=== PATIENT | female | born 1975 | race Caucasian/White ===

== ENCOUNTER 2023-04-24 09:00 | Outpatient (CLI) | payer OTHER, SELFPAY ==
--- NOTE | ~2023-04-24 | CT_ITS ---
Noncontrast CT scan of the right ankle CLINICAL HISTORY: Dog bite TECHNIQUE: Axial noncontrast imaging of the right ankle was performed. Sagittal and coronal reformatt ed images were constructed. Dose reduction technique was used on this scan by utilizing automated exp osure control and iterative reconstruction technique. The dose-length product (DLP) was 119.47 mGy-cm . Findings: No fracture or dislocation seen. Ankle mortise and remaining joint spaces are intact. No rian int effusion. There is probable mild subcutaneous soft tissue edema at the anterolateral aspect of the ankle/hindfo ot. No fluid collection or soft tissue mass evident. IMPRESSION: No osseous or articular abnormality. Suspected mild subcutaneous soft tissue edema anterolaterally. Correlate with physical exam. Reviewed, dictated and finalized at location . [employer] IMPRESSION: No osseous or articular abnormality. Suspected mild subcutaneous soft tissue edema anterolaterally. Correlate with p hysical exam.
== END 2023-04-24 09:01 ==
LOC: MICIMG 09:03
PROVIDERS: PCP Nurse Practitioner Family; Visit Provider Nurse Practitioner Family
DX: S90.571A Other superficial bite of ankle, right ankle, initial encounter (principal); X58.XXXA Exposure to other specified factors, initial encounter
CPT/HCPCS: 73700

== ENCOUNTER 2023-09-07 13:38 | Emergency (ER) | payer OTHER, SELFPAY ==
[2023-09-07 13:46] VITALS: BP 129/99; PULSE 98; RESP 16; TEMP 36.6; O2SAT 100
--- NOTE | 2023-09-07 14:58 | ED.EAR ---
HPI - Ear Problem General Chief complaint: Ear Stated complaint: Left Ear Pain Time Seen by Provider: 09/07/23 14:58 Source: patient, RN notes reviewed and old records reviewed Mode of arrival: ambulatory Limitations: no limitations History of Present Illness HPI Narrative: 48-year-old female presents to the [facility] with complaints of left ear pain for 3 days. Patient reports using ibuprofen and Sudafed. Also reports some congestion. Related Data Home Medications Medication Instructions Recorded Confirmed amoxicillin 875 mg tablet mg 09/07/23 eluxadoline 75 mg tablet (Viberzi) mg 09/07/23 rosuvastatin 5 mg tablet mg 09/07/23 Allergies Allergy/AdvReac Type Severity Reaction Status Date / Time No Known Allergies Allergy Verified 09/07/23 13:50 Review of Systems Review of Systems: All systems reviewed & are unremarkable except as noted in HPI and below Constitutional: Constitutional: Reports no additional constitutional complaints Eyes: Eyes: Reports no additional eye complaints ENT: Reports as per HPI, Reports otalgia and Reports nasal congestion Cardiovascular: Cardiovascular: Reports no additional cardiovascular complaints, Denies chest pain and Denies dyspnea Respiratory: Respiratory: Reports no additional respiratory complaints, Denies chest congestion, Denies cough and Denies dyspnea Gastrointestinal: Gastrointestinal: Reports no additional gastrointestinal complaints, Denies abdominal pain, Denies nausea and Denies vomiting Musculoskeletal: Musculoskeletal: Reports no additional musculoskeletal complaints Integumentary/Breasts: Skin/Breast: Reports system reviewed and no additional complaints, except as docu Neurologic: Reports system reviewed and no additional complaints, except as documented Psychiatric: Psychiatric: Reports no additional psychiatric complaints Allergic/Immunologic: Allergic/Immunologic: Reports no additional allergic/immunologic complaints [facility] Past Medical History Medical History High cholesterol Comments At the time of my signature, I reviewed and agree with the nursing past medical, surgical, social, and family history. There is no relevant family history pertinent to the patient complaint. Exam Const: General: cooperative, healthy appearing, comfortable, no acute distress, well developed, alert and well nourished Nutritional Appearance: well nourished Orientation/consciousness: patient oriented x3 Limitations: no limitations HENMT: Head: normal to inspection Ears: hearing grossly normal bilaterally, external ears normal and TM abnormal bulging bilateral, wth effusion serous on the right and erythematous on the left Face/Nose/Sinus: Normal external nose present, Normal nares present, Normal nasal mucous membranes and turbinates present, normal facial exam and face symmetric Face and sinus: normal facial exam and face symmetric Mouth: Yes Normal oral and palatal mucosa present, Yes lip normal and Yes moist mucous membranes Throat: posterior oropharynx normal, uvula midline, postnasal drainage and no uvular edema Eyes: General: appearance normal, both eyes and all related structures Alignment and Position: alignment normal Periorbital: periorbital findings normal Pupils: Equal, round and reactive pupils present EOM: EOMs intact bilaterally Neck: Neck: normal visual inspection, full ROM, no lymphadenopathy and no meningeal signs Chest: Chest palpation & inspection: normal inspection of the chest Resp: Effort & Inspection: normal respiratory effort and able to speak in complete sentences Auscultation: clear to auscultation bilaterally, no crackles, no rales, no rhonchi and no wheezes Cardio: Rate: regular rate Rhythm: regular rhythm Skin: General skin exam: normal color and no rashes or lesions noted Lesions: no lesions Rashes: no rashes Wounds: no wounds Neuro: General: patient oriented x3, gait alexx
== END 2023-09-07 15:09 | disposition home or self-care (01) ==
PROVIDERS: Emergency Provider Nurse Practitioner; PCP Nurse Practitioner Family
DX: H66.92 Otitis media, unspecified, left ear (principal); E78.00 Pure hypercholesterolemia, unspecified
CPT/HCPCS: 99213; G0463